=== PATIENT | male | born 1995 | race African-American/Black ===

== ENCOUNTER 2025-07-15 01:24 | Emergency (ER) | payer MEDICAID ==
[~2025-07-15] VITALS: Ht 190.5 cm; Wt 102.0 kg
[2025-07-15 01:41] VITALS: O2SAT 99
[2025-07-15] MEDS ORDERED: NAPR-1176 MT (02:53)
[2025-07-15] MEDS ORDERED: LIDO-53 TP (02:53)
[2025-07-15] MEDS ORDERED: BENZ100C86 MT (02:59)
[2025-07-15 04:12] VITALS: BP 145/79; PULSE 60; RESP 16; TEMP 36.9; O2SAT 98
== END 2025-07-15 04:17 | disposition home or self-care (01) ==
LOC: ER 01:37
DX: J06.9 Acute upper respiratory infection, unspecified (principal); B97.89 Other viral agents as the cause of diseases classified elsewhere; F17.200 Nicotine dependence, unspecified, uncomplicated; Z79.1 Long term (current) use of non-steroidal anti-inflammatories (NSAID)
CPT/HCPCS: 71045; 99283

== ENCOUNTER 2025-09-22 04:43 | Emergency (ER) | payer MEDICAID ==
[~2025-09-22] VITALS: Ht 177.8 cm; Wt 100.0 kg
[~2025-09-22 04:43] MED LIST: BENZ100C86 MT; LIDO-53 TP; NAPR-1176 MT
[2025-09-22 04:51] VITALS: O2SAT 99
[2025-09-22 06:38] VITALS: BP 130/84; PULSE 58; RESP 16; TEMP 36.7; O2SAT 99
== END 2025-09-22 06:38 | disposition home or self-care (01) ==
LOC: ER 04:43
DX: R00.2 Palpitations (principal); R05.9 Cough, unspecified; F19.10 Other psychoactive substance abuse, uncomplicated; F12.90 Cannabis use, unspecified, uncomplicated
CPT/HCPCS: 93005; 99283